=== PATIENT | female | born 1985 | race Caucasian/White ===

== ENCOUNTER 2016-05-15 19:26 | Emergency (ER) | payer BC ==
[~2016-05-15] VITALS: Ht 152.4 cm; Wt 48.4 kg
[2016-05-15 19:30] VITALS: BP 139/78; PULSE 112; TEMP 36.5; O2SAT 100; Ht 152.4 cm; Wt 48.4 kg
[2016-05-15] MEDS ORDERED: ACETAMINOPHEN 500 MG TAB PO STA (19:42)
[2016-05-15] MEDS ORDERED: SODIUM CHLORIDE 0.9% 1000ML 1,000 ML IV STA (19:42)
[2016-05-15] MEDS ORDERED: ONDANSETRON INJ 2 MG/ML 2 ML VIAL IV STA (19:42)
[2016-05-15 20:10] LABS: BASO % 0.1 %; BASO ABS # 0.02 K/uL (0-0.2); COMPLETE YES; EOS % 0.7 %; HEMATOCRIT 37.8 % (37-47); IG% 0.3 %; LYMPH % 21.7 %; LYMPH ABS # 3.19 K/uL (1.2-3.4); MEAN CELL VOLUME 97.2 fL (80-100); MEAN CORPUSCULAR HEMOGLOBIN 34.2 pg (25-34); MEAN CORPUSCULAR HGB CONC 35.2 g/dl (32-36); NEUT % 74.2 %; PLATELET COUNT 275 K/uL (130-400); RED BLOOD COUNT 3.89 M/uL (4.2-5.4); WHITE BLOOD COUNT 14.68 K/uL (4.8-10.8)
[2016-05-15 20:30] LABS: BUN/CREATININE RATIO 24.1 (10-20); CALCIUM 8.4 mg/dl (8.5-10.1); CREATININE 0.66 mg/dl (0.60-1.20)
[2016-05-15] MEDS ORDERED: NAPR1TAB9 PO (20:32)
--- NOTE | 2016-05-15 21:09 | EMERGENCY ROOM VISIT NOTE ---
History First contact with patient: 19:37 Chief Complaint: HEAD INJURY (MINOR) Stated Complaint: HIT HEAD CONCUSSION SYMPTOMS,DIZZY,NAUSEA,VOMITING History of Present Illness The patient is a 30 year old female who presents to the Emergency Room with complaints of head injury and nausea vomiting. The patient states that she was very intoxicated last evening and her friend told her that she fell and struck her forehead and top of head on a chair. The patient does not remember this incident. She got home at 6:00 this morning. She went to bed and then when she woke up she had nausea and vomiting. The patient also has a slight headache but denies any visual changes. She is slightly dizzy. She did not have anything to eat today. She was able to keep down some water over the past hour. The patient denies any neck pain. Review of Systems 10 system review was performed and was negative unless stated otherwise history of present illness. Past Medical/Surgical History Left breast surgery Social History Smoking Status: Current Every Day Smoker Alcohol Use: occasionally Marital Status: Housing Status: lives with family Occupation Status: employed Current/Historical Medications Scheduled Naproxen (Aleve), 220 MG PO PRN UD Allergies Coded Allergies: BEE STING (Verified Allergy, Severe, ANAPHYLAXIS, 05/15/16) Uncoded Allergies: PINEAPPLE (Allergy, Unknown, 04/25/02) Physical Exam Vital Signs Date Time Temp Pulse Resp B/P Pulse Ox O2 Delivery O2 Flow Rate FiO2 05/15/16 19:30 36.5 112 16 139/78 100 Room Air Physical Exam GENERAL: 30-year-old white female appears in no acute distress. She has a slight tremor to her hands. MENTAL Status: Alert and oriented 3. EYES: PERRLA. EOMs intact. EARS: Canals clear. TMs without hemotympanum NECK: Supple, no lymphadenopathy noted. No carotid bruits noted. LUNGS: Clear auscultation without wheezes rales or rhonchi. CARDIAC: Regular rate and rhythm without murmur. Pulses is full and equal throughout. ABDOMEN: Positive bowel sounds all 4 quadrants. Soft, nontender to palpation without organomegaly or masses. NEURO:Cranial nerves two through 12 intact. Cerebellar function intact with [id number]. Fine motor intact with alternating finger motions. Medical Decision & Procedures Laboratory Results 05/15/16 20:00 Red Blood Count 3.89, Mean Corpuscular Volume 97.2, Mean Corpuscular Hemoglobin 34.2, Mean Corpuscular Hemoglobin Concent 35.2, Mean Platelet Volume 10.0, Neutrophils (%) (Auto) 74.2, Lymphocytes (%) (Auto) 21.7, Monocytes (%) (Auto) 3.0, Eosinophils (%) (Auto) 0.7, Basophils (%) (Auto) 0.1, Neutrophils # (Auto) 10.88, Lymphocytes # (Auto) 3.19, Monocytes # (Auto) 0.44, Eosinophils # (Auto) 0.11, Basophils # (Auto) 0.02 05/15/16 20:00 Test 05/15/16 20:00 White Blood Count 14.68 K/uL (4.8-10.8) Red Blood Count 3.89 M/uL (4.2-5.4) Hemoglobin 13.3 g/dL (12.0-16.0) Hematocrit 37.8 % (37-47) Mean Corpuscular Volume 97.2 fL (80-100) Mean Corpuscular Hemoglobin 34.2 pg (25-34) Mean Corpuscular Hemoglobin Concent 35.2 g/dl (32-36) Platelet Count 275 K/uL (130-400) Mean Platelet Volume 10.0 fL (7.4-10.4) Neutrophils (%) (Auto) 74.2 % Lymphocytes (%) (Auto) 21.7 % Monocytes (%) (Auto) 3.0 % Eosinophils (%) (Auto) 0.7 % Basophils (%) (Auto) 0.1 % Neutrophils # (Auto) 10.88 K/uL (1.4-6.5) Lymphocytes # (Auto) 3.19 K/uL (1.2-3.4) Monocytes # (Auto) 0.44 K/uL (0.11-0.59) Eosinophils # (Auto) 0.11 K/uL (0-0.5) Basophils # (Auto) 0.02 K/uL (0-0.2) RDW Standard Deviation 43.1 fL (36.4-46.3) RDW Coefficient of Variation 12.1 % (11.5-14.5) Immature Granulocyte % (Auto) 0.3 % Immature Granulocyte # (Auto) 0.04 K/uL (0.00-0.02) Anion Gap 15.0 mmol/L (3-11) Est Creatinine Clear Calc Drug Dose 88.7 ml/min Estimated GFR () 136.4 Estimated GFR (Non- 117.7 BUN/Creatinine Ratio 24.1 (10-20) Calcium Level 8.4 mg/dl (8.5-10.1) Medications Administered Medications (Trade) Dose Ordered Sig/Esthela Route Start Time Stop Time Status Last Admin Dose Admin Sodium Chloride (Nss 1000ml) 1,000 ml @ 999 mls/hr Q1H1M STAT IV 05/15/16 19:42 05/15/16 20:42 DC 05/15/16 20:03 999 MLS/HR Ondansetron HCl (Zofran Inj) 4 mg NOW STAT IV 05/15/16 19:42 05/15/16 19:43 DC 05/15/16 20:03 4 MG Acetaminophen (Tylenol Tab) 1,000 mg NOW STAT PO 05/15/16 19:42 05/15/16 19:43 DC 05/15/16 20:03 1,000 MG ED Course The patient was evaluated. IV access was obtained. The patient was given 1 L normal saline wide-open. She was given Zofran 4 mg IV push for nausea. She was given Tylenol 1 g by mouth for headache. CBC and differential, renal profile was ordered. The patient's white count was elevated but this is most likely due to her vomiting. She was also hypoglycemic with a blood sugar of 64. The patient was given orange juice. She was again reevaluated and was feeling better. The patient was discharged home in stable condition. Medical Decision The differential include head contusion, intracranial bleed, subarachnoid hemorrhage. The patient did not have any neurologic findings on exam and due to the fact that the patient was intoxicated I will not perform a CAT scan [place] likely her nausea and vomiting is due to the alcohol intoxication. The patient's blood sugar was low and she was symptomatic with her hand shaking. I feel that she needs to be followed up by her family physician to evaluate her hypoglycemia. Impression Primary Impression: Closed head injury Additional Impressions: Nausea and vomiting Hypoglycemia Departure Information Dispostion Home / Self-Care Condition GOOD Referrals No Doctor, Assigned (PCP) Forms HOME CARE DOCUMENTATION FORM, IMPORTANT VISIT INFORMATION Patient Instructions ED Head Injury Closed, ED Nausea Vomiting, My [facility] Additional Instructions Push fluids. Follow bland diet. Advance diet slowly as tolerated. Take Zofran as needed for nausea. Follow head injury handout instructions. Any problems return to ER. Follow-up with your family physician this week for evaluation of your hypoglycemia. Problem Qualifiers Primary Impression: Closed head injury Encounter type: initial encounter Qualified Codes: S09.90XA - Unspecified injury of head, initial encounter Additional Impressions: Nausea and vomiting Vomiting type: unspecified Vomiting Intractability: unspecified Qualified Codes: R11.2 - Nausea with vomiting, unspecified
[2016-05-15] MEDS ORDERED: ONDANSETRON HOME PACK 4MG OD TAB PO ONE (21:15)
[2016-08-16] MEDS ORDERED: BUPR-83 PO (09:51)
[2016-08-25] MEDS ORDERED: BUPR-83 PO (10:55)
== END 2016-05-15 21:26 | disposition home or self-care (01) ==
LOC: C.EDB 19:28 → C.EDD 21:26
DX: S09.90XA Unspecified injury of head, initial encounter (principal); W18.09XA Striking against other object with subsequent fall, initial encounter; R11.2 Nausea with vomiting, unspecified; E16.2 Hypoglycemia, unspecified; F17.200 Nicotine dependence, unspecified, uncomplicated; Z98.890 Other specified postprocedural states

== ENCOUNTER → 2016-06-28 | Outpatient (CLI) | payer BC ==
[~2016-06-28] MED LIST: BUPR-83 PO; NAPR1TAB9 PO
== END | disposition home or self-care (01) ==
LOC: C.PAPS 09:42
PROVIDERS: ATTEND Obstetrics & Gynecology
DX: Z01.419 Encounter for gynecological examination (general) (routine) without abnormal findings (principal)

== ENCOUNTER → 2016-07-08 | Outpatient (CLI) | payer BC ==
[2016-07-08 16:02] LABS: PROLACTIN 11.05 ng/mL
== END | disposition home or self-care (01) ==
LOC: C.LAB 14:41
PROVIDERS: ATTEND Obstetrics & Gynecology
DX: N94.6 Dysmenorrhea, unspecified (principal); R10.2 Pelvic and perineal pain; N92.0 Excessive and frequent menstruation with regular cycle

== ENCOUNTER → 2016-08-22 | Outpatient (CLI) | payer BC ==
[~2016-08-22] MED LIST changes: -NAPR1TAB9 PO
[2016-08-22 12:44] LABS: BASO % 0.4 %; BASO ABS # 0.03 K/uL (0-0.2); COMPLETE YES; EOS % 3.9 %; HEMATOCRIT 38.2 % (37-47); IG% 0.1 %; LYMPH % 32.4 %; LYMPH ABS # 2.48 K/uL (1.2-3.4); MEAN CELL VOLUME 97.2 fL (80-100); MEAN CORPUSCULAR HEMOGLOBIN 32.6 pg (25-34); MEAN CORPUSCULAR HGB CONC 33.5 g/dl (32-36); MEAN PLATELET VOLUME 9.5 fL (7.4-10.4); MONO % 4.8 %; NEUT % 58.4 %; PLATELET COUNT 280 K/uL (130-400); RED BLOOD COUNT 3.93 M/uL (4.2-5.4); WHITE BLOOD COUNT 7.66 K/uL (4.8-10.8)
[2016-08-22 13:13] LABS: PREG INTERNAL NEGATIVE QC NEG CLEAR BACKGROUND; PREG INTERNAL POSITIVE QC POS CONTROL LINE
== END | disposition home or self-care (01) ==
LOC: C.LAB 12:04
PROVIDERS: ATTEND Obstetrics & Gynecology
DX: R10.2 Pelvic and perineal pain (principal); N94.6 Dysmenorrhea, unspecified; N92.0 Excessive and frequent menstruation with regular cycle

== ENCOUNTER 2016-08-23 00:29 | Emergency (ER) | payer BC ==
[~2016-08-23] VITALS: Ht 152.4 cm; Wt 51.3 kg
[2016-08-23 00:40] VITALS: TEMP 37.4; Ht 152.4 cm; Wt 51.3 kg
[2016-08-23] MEDS ORDERED: SODIUM CHLORIDE 0.9% 1000ML 2,000 ML IV STA (00:42)
--- NOTE | 2016-08-23 00:50 | EMERGENCY ROOM VISIT NOTE ---
History Report prepared by Roxana: Mayra Rand Under the Supervision of: Dr. Blayne Florian M.D. First contact with patient: 00:36 Chief Complaint: ANXIETY Stated Complaint: ANXIETY FOLLOWING MEDICATION USE History of Present Illness The patient is a 30 year old female who presents to the Emergency Room via EMS with complaints of persistent anxiety that started 3 hours ago. Associated symptoms include shaking and reported pain in her legs. The patient was given IV Ativan en route. Patient's friend in room states that the patient used CBD oil for pain today. He states that this oil, which he bought from a friend, is not supposed to cause the user to experience a high. He is concerned that it may have been laced with another drug. Patient denies fevers, nausea, vomiting, or any additional associated symptoms. Source of History: patient, spouse/significant other Onset: 3 hours ago Position: other (Mental Health ) Timing: other (Persistent) Modifying Factors (Worsening): other (None) Associated Symptoms: No fevers, No nausea, No vomiting Note: Shaking and pain in legs Review of Systems See HPI for pertinent positives & negatives. A total of 10 systems reviewed and were otherwise negative. Past Medical & Surgical Medical Problems: (1) Marijuana use Family History Unknown Social History Smoking Status: Current Every Day Smoker Alcohol Use: occasionally Drug Use: marijuana Marital Status: Housing Status: lives with family Occupation Status: employed Current/Historical Medications No Active Prescriptions or Reported Meds Allergies Coded Allergies: BEE STING (Verified Allergy, Severe, ANAPHYLAXIS, 08/23/16) NO KNOWN DRUG ALLERGIES (Verified Allergy, Unknown, ., 08/23/16) Uncoded Allergies: PINEAPPLE (Allergy, Unknown, TONGUE SWELLING, 08/16/16) Physical Exam Vital Signs Date Time Temp Pulse Resp B/P (MAP) Pulse Ox O2 Delivery O2 Flow Rate FiO2 08/23/16 02:36 95 18 96 Room Air 08/23/16 02:31 104/55 08/23/16 02:06 101 16 96 Room Air 08/23/16 02:01 98/47 08/23/16 01:59 106 15 96 Room Air 08/23/16 01:31 105/66 08/23/16 01:29 100 11 98 Room Air 08/23/16 01:01 105/66 08/23/16 00:59 108 17 99 Room Air 08/23/16 00:40 37.4 97 18 117/76 97 Room Air 08/23/16 00:38 108 08/23/16 00:37 117/76 Physical Exam GENERAL: Somnolent yet mildly anxious appearing HEENT: No acute trauma, normocephalic atraumatic, mucous membranes moist, no nasal congestion, no scleral icterus. NECK: No stridor, no adenopathy, no meningismus, trachea is midline. LUNGS: No dyspnea. Clear to auscultation and equal bilaterally. No wheeze, no rhonchi. HEART: Tachycardiac, regular rhythm. No murmurs, rubs, gallops appreciated. ABDOMEN: Soft, nontender, bowel sounds positive, no masses appreciated, no peritonitis. BACK: No midline tenderness, no CVA tenderness EXTREMITIES: Normal motion all extremities, no cyanosis, no edema. NEUROLOGIC: Alert and oriented, no acute motor or sensory deficits, no focal weakness, cranial nerves grossly intact. SKIN: Heavily tattooed. No rash, no jaundice, no diaphoresis. Medical Decision & Procedures Laboratory Results 08/23/16 00:09 Red Blood Count 3.97, Mean Corpuscular Volume 96.7, Mean Corpuscular Hemoglobin 32.0, Mean Corpuscular Hemoglobin Concent 33.1, Mean Platelet Volume 9.8, Neutrophils (%) (Auto) 31.6, Lymphocytes (%) (Auto) 60.1, Monocytes (%) (Auto) 5.3, Eosinophils (%) (Auto) 2.6, Basophils (%) (Auto) 0.2, Neutrophils # (Auto) 2.99, Lymphocytes # (Auto) 5.69, Monocytes # (Auto) 0.50, Eosinophils # (Auto) 0.25, Basophils # (Auto) 0.02 08/23/16 00:09 Test 08/23/16 00:09 08/23/16 01:10 White Blood Count 9.47 K/uL (4.8-10.8) Red Blood Count 3.97 M/uL (4.2-5.4) Hemoglobin 12.7 g/dL (12.0-16.0) Hematocrit 38.4 % (37-47) Mean Corpuscular Volume 96.7 fL (80-100) Mean Corpuscular Hemoglobin 32.0 pg (25-34) Mean Corpuscular Hemoglobin Concent 33.1 g/dl (32-36) Platelet Count 297 K/uL (130-400) Mean Platelet Volume 9.8 fL (7.4-10.4) Neutrophils (%) (Auto) 31.6 % Lymphocytes (%) (Auto) 60.1 % Monocytes (%) (Auto) 5.3 % Eosinophils (%) (Auto) 2.6 % Basophils (%) (Auto) 0.2 % Neutrophils # (Auto) 2.99 K/uL (1.4-6.5) Lymphocytes # (Auto) 5.69 K/uL (1.2-3.4) Monocytes # (Auto) 0.50 K/uL (0.11-0.59) Eosinophils # (Auto) 0.25 K/uL (0-0.5) Basophils # (Auto) 0.02 K/uL (0-0.2) RDW Standard Deviation 42.2 fL (36.4-46.3) RDW Coefficient of Variation 11.8 % (11.5-14.5) Immature Granulocyte % (Auto) 0.2 % Immature Granulocyte # (Auto) 0.02 K/uL (0.00-0.02) Anion Gap 10.0 mmol/L (3-11) Est Creatinine Clear Calc Drug Dose 63.6 ml/min Estimated GFR () 96.2 Estimated GFR (Non- 83.0 BUN/Creatinine Ratio 13.9 (10-20) Calcium Level 8.3 mg/dl (8.5-10.1) Total Bilirubin 0.6 mg/dl (0.2-1) Direct Bilirubin 0.2 mg/dl (0-0.2) Aspartate Amino Transf (AST/SGOT) 17 U/L (15-37) Alanine Aminotransferase (ALT/SGPT) 23 U/L (12-78) Alkaline Phosphatase 48 U/L (45-117) Total Creatine Kinase 181 U/L (26-192) Troponin I < 0.015 ng/ml (0-0.045) Total Protein 7.2 gm/dl (6.4-8.2) Albumin 4.0 gm/dl (3.4-5.0) Ethyl Alcohol mg/dL < 3.0 mg/dl (0-3) Laboratory results as reviewed by me. Medications Administered Medications (Trade) Dose Ordered Sig/Esthela Route Start Time Stop Time Status Last Admin Dose Admin Sodium Chloride 2,000 ml @ 999 mls/hr Q2H1M STAT IV 08/23/16 00:42 08/23/16 02:42 DC 08/23/16 00:42 999 MLS/HR ECG Indication: altered mental status Rate (beats per minute): 103 Rhythm: sinus tachycardia Findings: no acute ischemic change, no ectopy, other (QTC 455) ED Course 0038: The patient was evaluated in room A3. A complete history and physical exam was performed. 0042: Ordered Sodium Chloride 2,000 ml @ 999 mls/hr IV. 0233: Upon reevaluation, the patient is awake, alert, and oriented. The patient feels much better at this time. She denies thoughts of self-harm or harm to others. Patient would like to go home. 0238: Discussed results and discharge instructions: She verbalized understanding and agreement. The patient is ready for discharge. Medical Decision Differential: Suicide Attempt, Mood Disorder, Poisoning, Medication OD, Narcotic OD, Tylenol OD, Salicylated OD, Prolonged QTc, Metabolic/Electrolyte imbalance, Trauma, Rhabdo, Infectious, amongst other pathologies entertained. 30 yr old female arrives via EMS after episode of severe anxiety/agitation after ingestion of CBD oil pill. Suspect it was laced with something. Vastly improved with ativan [employer]. Given 2 L NSS here. Work-up benign. She is feeling much improved and feeling like she would wish to go home. Make very clear this was not suicide attempt and denies other issues this evening. Awake, alert, oriented and comfortable. Discussed at length risks associated with taking no fda medications. Reviewed symptoms requiring RTED. Impression Primary Impression: Acute anxiety Additional Impression: Adverse drug reaction Scribe Attestation The scribe's documentation has been prepared under my direction and personally reviewed by me in its entirety. I confirm that the note above accurately reflects all work, treatment, procedures, and medical decision making performed by me. Departure Information Dispostion Home / Self-Care Prescriptions No Active Prescriptions or Reported Meds Referrals No Doctor, Assigned (PCP) Forms HOME CARE DOCUMENTATION FORM, IMPORTANT VISIT INFORMATION Patient Instructions My [facility] Additional Instructions Use extreme caution with taking supplements as these may not be FDA approved and monitored. Return if worsening symptoms, passing out, headache, fevers, breathing difficulty or other concerns. Keep well hydrated and rest over the next 24-48 hrs. We are always here to help. Problem Qualifiers
[2016-08-23 00:53] LABS: HEMATOCRIT 38.4 % (37-47); MEAN CELL VOLUME 96.7 fL (80-100); MEAN CORPUSCULAR HGB CONC 33.1 g/dl (32-36); MEAN PLATELET VOLUME 9.8 fL (7.4-10.4); PLATELET COUNT 297 K/uL (130-400); RED BLOOD COUNT 3.97 M/uL (4.2-5.4); WHITE BLOOD COUNT 9.47 K/uL (4.8-10.8)
[2016-08-23 01:01] LABS: ALT/SGPT 23 U/L (12-78); AST/SGOT 17 U/L (15-37); BLOOD UREA NITROGEN 13 mg/dl (7-18); BUN/CREATININE RATIO 13.9 (10-20); CALCIUM 8.3 mg/dl (8.5-10.1); CARBON DIOXIDE 27 mmol/L (21-32); CHLORIDE 104 mmol/L (98-107); CREATININE 0.92 mg/dl (0.60-1.20); GLUCOSE 112 mg/dl (70-99); POTASSIUM 3.7 mmol/L (3.5-5.1); SODIUM 141 mmol/L (136-145)
[2016-08-23 01:06] LABS: ALKALINE PHOSPHATASE 48 U/L (45-117)
[2016-08-23 01:30] LABS: BASO % 0.2 %; BASO ABS # 0.02 K/uL (0-0.2); COMPLETE YES; EOS % 2.6 %; IG% 0.2 %; LYMPH % 60.1 %; LYMPH ABS # 5.69 K/uL (1.2-3.4); MONO % 5.3 %; NEUT % 31.6 %
[2016-08-23 02:31] VITALS: BP 104/55
[2016-08-23 02:36] VITALS: PULSE 95; O2SAT 96
[2016-08-25] MEDS ORDERED: BUPR-83 PO (10:55)
== END 2016-08-23 02:52 | disposition home or self-care (01) ==
LOC: EDBD 00:29 → C.EDA 00:30
DX: F41.9 Anxiety disorder, unspecified (principal); T50.991A Poisoning by other drugs, medicaments and biological substances, accidental (unintentional), initial encounter; R00.0 Tachycardia, unspecified; F17.200 Nicotine dependence, unspecified, uncomplicated; Z91.030 Bee allergy status

== ENCOUNTER → 2016-08-25 | Day surgery (SDC) | payer BC ==
[2016-08-16 09:51] VITALS: Ht 154.9 cm; Wt 47.7 kg
--- NOTE | 2016-08-22 13:13 | HISTORY & PHYSICAL EXAMINATION ---
DATE OF ADMISSION: 08/25/2016 CHIEF COMPLAINT: Severe dysmenorrhea, pelvic pain and dyspareunia. HISTORY OF PRESENT ILLNESS: The patient is a 30-year-old 1, para 0, history of first trimester spontaneous AB. She has had worsening pelvic pain and severe dysmenorrhea for years, specifically over 4 years. Periods are described as coming every 25-26, lasting for 5-6 days, extremely heavy bleeding for 3 days cycle, at times soaking over a pad an hour. Also has severe dysmenorrhea and pelvic pain. She started out having just 1-2 bad days as cycle and that went to 3-4 and then to having pelvic pain and pain on intercourse when she was not having her periods. She is presently being scheduled for D and C and diagnostic laparoscopy. PAST MEDICAL HISTORY: No known drug allergies. PAST SURGICAL HISTORY: She had duct removed from her left breast. MEDICAL HISTORY: No rheumatic fever, heart disease, heart murmur, diabetes, or tuberculosis. SOCIAL HISTORY: A pack a day smoker for 17 years. Denies excessive alcohol intake. She works in agricultural industry. FAMILY HISTORY: Mom is 58 in good health. Father 75 in good health. One sister has multiple sclerosis. REVIEW OF SYSTEMS: HEAD: No symptoms of frequent or severe headaches. EYES: No symptoms of blurred vision or double vision. EARS: No symptoms of frequent ear infections or difficulty hearing. NOSE: No symptoms of frequent nosebleeds or difficulty breathing through her nose. THROAT: No symptoms of frequent or severe sore throats, or difficulty swallowing. PHYSICAL EXAMINATION: GENERAL: Well-developed, well-nourished 30-year-old white female, alert, oriented x3 and cooperative in no acute distress, appears stated age. EYES: Conjunctivae are pink. Sclerae white. No evidence of jaundice. EARS: Had normal light reflex bilaterally. NOSE: Had normal mucosa. Septum is midline. There were no polyps. THROAT: No erythema or evidence of infection. Teeth are in good state of repair. HEAD: Normocephalic, normal distribution of hair. NECK: Supple. Trachea midline. Thyroid is not enlarged. There is no adenopathy appreciated. Both carotids are of good intensity. CHEST: Clear to auscultation and percussion. No wheezes, rales or rhonchi appreciated. HEART: Had regular rhythm. S1 and S2 are normal. BREASTS: Normal. ABDOMEN: Soft and nontender. PELVIC: Revealed normal-appearing cervix. Uterus was anteverted. There was tenderness and nodularity of both uterosacral ligaments. MUSCULOSKELETAL: Revealed no calf tenderness. IMPRESSIONS OF THIS CASE: Hypermenorrhea, severe dysmenorrhea, dyspareunia and pelvic pain. MTDD
[~2016-08-25] VITALS: Ht 154.9 cm; Wt 47.7 kg
[~2016-08-25] MED LIST changes: +ATROPINE SULFATE 0.1 MG/ML 5ML SYR IV PRN; +BUPIVACAINE/EPINEPHRINE 0.5% MPF 1:200,000 30 ML VIAL ONE; +DEXAMETHASONE SOD INJ 4 MG/ML VIAL ONE; +EpHEDrine SULFATE INJ 50 MG/ML AMP IV PRN; +FENTANYL CITRATE INJ 50 MCG/1 ML 2 ML VIAL ONE; +GLYCOPYRROLATE INJ 0.2 MG/ML VIAL ONE; +HYDROCODONE/ACETAMOPHEN 5/325MG TAB PO PRN; +IBUPROFEN 600 MG TAB PO PRN; +KETOROLAC TROMETHAMINE 30 MG/ML VIAL IV. PRN; +KETOROLAC TROMETHAMINE 30 MG/ML VIAL ONE; +LACTATED RINGER'S 1000ML 1,000 ML IV SCH; +LIDOCAINE HCL 2% 2 ML VIAL (20MG/ML) ONE; +MIDAZOLAM HCL 1 MG/ML 2ML VIAL ONE; +NEOSTIGMINE METHYLSULFATE 5 MG/5 ML SYR ONE; +ONDANSETRON INJ 2 MG/ML 2 ML VIAL IV PRN; +ONDANSETRON INJ 2 MG/ML 2 ML VIAL ONE; +OXYCODONE/ACETAMINOPHEN 5-325 TAB ONE; +OXYCODONE/ACETAMINOPHEN 5-325 TAB PO PRN; +PROPOFOL IV EMULSION 10 MG/ML 20 ML VIAL IV ONE; +ROCURONIUM BROMIDE 10 MG/ML 5 ML VIAL ONE; +SCOPOLAMINE 1.5 MG TDSY TD ONE; +SODIUM CHLORIDE 0.9% 1000ML 1,000 ML IV SCH; +SODIUM CHLORIDE 0.9% INJ 10 ML VIAL ONE
--- NOTE | 2016-08-25 11:55 | History & Physical Bridge Note ---
H&P Re-Evaluation Bridge Note: I have examined the patient, reviewed the History & Physical and in the interval since the performance of the History & Physical I have noted the following changes of clinical significance: No changes noted
--- NOTE | 2016-08-25 13:21 | [facility] Post Operative Brief Note ---
Immediate Operative Summary Operative Date Aug 25, 2016. Pre-Operative Diagnosis Dysmenorrhea, Pelvic Pain, Hypermenorrhea Post-Operative Diagnosis Same Procedure(s) Performed Laparoscopic Evaluation, Dilatation And Curretage Surgeon Dr May Lamp Inspector Surgeon(s) None Estimated Blood Loss 5ml Findings ENDOMETRIOSIS OF THE OVARIES AND CUL DE SAC Specimens A: Endometrial Currettings Complication(s) None Disposition Recovery Room / PACU
--- NOTE | 2016-08-25 13:24 | Discharge Instructions-SurgCtr ---
Discharge Instructions Date of Service Aug 25, 2016. Visit Reason for Visit: Dysmenorrhea, Pelvic Pain, Hypermenorrhea Discharge Discharge Diagnosis / Problem: PELVIC PAIN ENDOMETRIOSIS Discharge Goals Goal(s): Decrease discomfort Activity Recommendations Activity Limitations: as noted below SPECIAL CARE INSTRUCTIONS: * Check temperature twice daily for one week. Report any elevation over 100.4 degrees Fahrenheit (38.0 degrees Celsius). * Call office in the next few days for return appointment. * You may experience some vaginal spotting and/or bleeding, this is normal for one or two weeks and should not alarm you. * Post-operative discomfort may consist of a sore throat, a "bloated" feeling and pain in the shoulders. These are normal symptoms which usually only last for two or three days. FOLLOW UP VISIT: Keep any scheduled doctor appointments. Anesthesia . Post Anesthesia Instructions: If you have had General Anesthesia or IV Sedation: * Do not drive today. * Resume driving when surgeon permits. * Do not make important decisions or sign legal documents today. * Call surgeon for: 1. Temperature elevations greater than 101 degrees F. 2. Uncontrollable pain. 3. Excessive bleeding. 4. Persistent nausea and vomiting. 5. Medication intolerance (nausea, vomiting or rash). * For nausea and vomiting use only clear liquids such as: tea, soda, bouillon until nausea subsides, then gradually increase diet as tolerated. * If you have any concerns or questions, call your surgeon's office. If physician is unavailable and it is an emergency, call 911 or go to the nearest emergency room. . Diet Recommendations Home Diet: resume previous diet Procedures Procedures Performed: Laparoscopic Evaluation, Dilatation And Curretage Pending Studies Studies pending at discharge: no Medical Emergencies . Who to Call and When: Medical Emergencies: If at any time you feel your situation is an emergency, please call 911 immediately. . Non-Emergent Contact Non-Emergency issues call your: Rubber Compounder Formulator Call Non-Emergent contact if: temperature is above 100.5 . . "Provider Documentation" section prepared by Eder May. .
[2016-08-25] MEDS: FENTANYL CITRATE INJ 50 MCG/1 ML 2 ML VIAL IV PRN ×7 (13:32→13:47)
--- NOTE | 2016-08-25 14:14 | OPERATIVE REPORT ---
DATE OF OPERATION: 08/25/2016 PROCEDURE: D&C, laparoscopic evaluation, and cauterization of endometrial and ovarian implants. INDICATIONS FOR SURGERY: Severe pelvic pain and dyspareunia. PREOPERATIVE DIAGNOSES: Pelvic pain and dyspareunia. POSTOPERATIVE DIAGNOSES: Same and endometriosis involving the cul-de-sac and also the surface of the ovaries. ESTIMATED BLOOD LOSS: 5 mL. ANESTHESIA: General. OPERATIVE FINDINGS AND PROCEDURE: The patient was brought to the OR table, correctly identified by armband and conversation. General anesthesia was administered. Perineum, vagina and lower abdomen were painted with Betadine paint and draped in the usual sterile fashion. Catheter was used to empty the bladder. Pelvic exam under anesthesia revealed an anteverted uterus. There were no adnexal masses appreciated. Weighted speculum was placed in the posterior vagina. Anterior lip of the cervix was grasped with single tooth tenaculum. Uterus was sounded to 8.5 cm. Cervix was dilated with graduated dilators. Small sharp serrated curet was used to thoroughly curette out the endometrial cavity. This was productive of a moderate amount of grossly normal appearing tissue, all of which was submitted for pathological evaluation. Following this, an acorn cannula was inserted into the cervical canal for manipulation of the uterus. Attention was now turned to the abdomen. Subumbilical area was infiltrated with lidocaine with epinephrine. A stab wound was placed and a Veress needle was inserted into the abdomen. Position was checked with normal saline and then, about 2+ liters of carbon dioxide gas was instilled into the abdomen. The incision was then widened laterally. Veress needle was removed. Large cannula and trocar were inserted. Trocar was removed. Laparoscope was inserted. Good visualization of pelvic structures was obtained at this time. A second puncture site was made in the midline 3 fingerbreadths above the pubic symphysis. A second insulator and trocar were inserted under direct visualization and a blunt probe was used to manipulate the bowels and expose the cul-de-sac. Took photographs of the appendix. Inspection of the cul-de-sac revealed superficial endometriosis of the cul-de-sac. Photographs were taken. There was also a large involvement of endometriosis in the surface of the ovary. I was able to position the ovaries in a safe area and cauterized. Two large areas on the right ovary and then a large area on the left ovary. The cautery, you could see some chocolate fluid coming from the cyst and I completely removed the endometrial tissue. Once the ovaries were clear, we washed out the whole pelvis with normal saline and suctioned clean. Hemostasis was excellent. The patient tolerated the procedure well. It should be noted that we did make an attempt or two to biopsy the peritoneal lesions, but we were unsuccessful due to the tightness of the peritoneum. After photographing and removing instruments, the ports were cleansed with Betadine and sutured with interrupted sutures of Vicryl. I attest to the content of the Intraoperative Record and any orders documented therein. Any exception s are noted below.
[2016-08-25 14:34] VITALS: TEMP 37.2
--- NOTE | 2016-08-25 14:55 | Anesthesia Progress Nt - [facility] ---
Anesthesia Post Op Note Date & Time Aug 25, 2016 at 14:55 Vital Signs Pain Intensity: 4 Vital Signs Past 12 Hours Date Time Temp Pulse Resp B/P (MAP) Pulse Ox O2 Delivery O2 Flow Rate FiO2 08/25/16 14:34 37.2 67 16 106/70 (82) 100 Room Air 08/25/16 14:17 58 20 99 08/25/16 14:17 58 20 08/25/16 14:16 98/72 08/25/16 14:15 36.8 61 17 98/72 100 Room Air 08/25/16 14:13 115/63 08/25/16 14:12 62 14 99 08/25/16 14:12 64 14 08/25/16 14:11 64 18 08/25/16 14:11 66 18 100 08/25/16 14:08 118/47 08/25/16 14:06 62 17 100 08/25/16 14:06 62 17 08/25/16 14:02 129/81 08/25/16 14:01 55 23 08/25/16 14:01 55 23 98 08/25/16 13:58 84/50 08/25/16 13:56 69 17 08/25/16 13:56 71 17 100 08/25/16 13:55 66 19 100 08/25/16 13:55 64 19 08/25/16 13:53 111/89 08/25/16 13:53 111/89 08/25/16 13:51 59 16 100 08/25/16 13:51 60 16 08/25/16 13:50 58 16 100 08/25/16 13:50 57 16 08/25/16 13:48 101/76 08/25/16 13:48 101/76 08/25/16 13:46 59 16 100 08/25/16 13:46 61 16 08/25/16 13:45 59 18 08/25/16 13:45 58 18 100 08/25/16 13:42 102/76 08/25/16 13:42 102/76 08/25/16 13:41 66 15 08/25/16 13:41 63 15 100 08/25/16 13:40 73 17 08/25/16 13:40 74 17 100 08/25/16 13:39 99/77 08/25/16 13:39 99/77 08/25/16 13:36 69 17 100 08/25/16 13:36 69 17 08/25/16 13:35 67 19 100 08/25/16 13:35 66 19 08/25/16 13:31 66 14 08/25/16 13:31 65 14 100 08/25/16 13:30 82 20 99 08/25/16 13:30 77 20 08/25/16 13:29 135/40 08/25/16 13:29 135/40 08/25/16 13:26 20 08/25/16 13:26 77 20 08/25/16 13:25 67 29 08/25/16 13:25 67 29 08/25/16 13:25 36.4 65 16 135/40 100 Mask 08/25/16 10:55 36.9 90 16 123/82 (96) 100 Room Air Notes Mental Status: alert / awake / arousable, participated in evaluation Pt Amnestic to Procedure: Yes Nausea / Vomiting: adequately controlled Pain: adequately controlled Airway Patency, RR, SpO2: stable & adequate BP & HR: stable & adequate Hydration State: stable & adequate Anesthetic Complications: no major complications apparent
[2016-08-25 14:56] VITALS: BP 108/64; PULSE 71; O2SAT 100
== END | disposition home or self-care (01) ==
LOC: X.SURG 10:44
PROVIDERS: ATTEND Obstetrics & Gynecology
DX: R10.2 Pelvic and perineal pain (principal); N94.10 Unspecified dyspareunia; N80.3 Endometriosis of pelvic peritoneum; N80.1 Endometriosis of ovary; Z68.20 Body mass index [BMI] 20.0-20.9, adult; F17.200 Nicotine dependence, unspecified, uncomplicated

== ENCOUNTER → 2017-08-01 | Outpatient (CLI) | payer OTHER ==
[~2017-08-01] MED LIST changes: -ATROPINE SULFATE 0.1 MG/ML 5ML SYR IV PRN; -BUPIVACAINE/EPINEPHRINE 0.5% MPF 1:200,000 30 ML VIAL ONE; -DEXAMETHASONE SOD INJ 4 MG/ML VIAL ONE; -EpHEDrine SULFATE INJ 50 MG/ML AMP IV PRN; -FENTANYL CITRATE INJ 50 MCG/1 ML 2 ML VIAL ONE; -GLYCOPYRROLATE INJ 0.2 MG/ML VIAL ONE; -HYDROCODONE/ACETAMOPHEN 5/325MG TAB PO PRN; -IBUPROFEN 600 MG TAB PO PRN; -KETOROLAC TROMETHAMINE 30 MG/ML VIAL IV. PRN; -KETOROLAC TROMETHAMINE 30 MG/ML VIAL ONE; -LACTATED RINGER'S 1000ML 1,000 ML IV SCH; -LIDOCAINE HCL 2% 2 ML VIAL (20MG/ML) ONE; -MIDAZOLAM HCL 1 MG/ML 2ML VIAL ONE; -NEOSTIGMINE METHYLSULFATE 5 MG/5 ML SYR ONE; -ONDANSETRON INJ 2 MG/ML 2 ML VIAL IV PRN; -ONDANSETRON INJ 2 MG/ML 2 ML VIAL ONE; -OXYCODONE/ACETAMINOPHEN 5-325 TAB ONE; -OXYCODONE/ACETAMINOPHEN 5-325 TAB PO PRN; -PROPOFOL IV EMULSION 10 MG/ML 20 ML VIAL IV ONE; -ROCURONIUM BROMIDE 10 MG/ML 5 ML VIAL ONE; -SCOPOLAMINE 1.5 MG TDSY TD ONE; -SODIUM CHLORIDE 0.9% 1000ML 1,000 ML IV SCH; -SODIUM CHLORIDE 0.9% INJ 10 ML VIAL ONE
[2017-08-01 15:58] LABS: HEMATOCRIT 36.7 % (37-47); HEMOGLOBIN 12.7 g/dL (12.0-16.0)
== END | disposition home or self-care (01) ==
LOC: C.LAB 15:14
PROVIDERS: ATTEND Obstetrics & Gynecology
DX: N92.0 Excessive and frequent menstruation with regular cycle (principal)